=== PATIENT | female | born 1950 | race Native Hawaiian/Other Pacific Islander ===

== ENCOUNTER 2021-02-18 13:42 | Outpatient (CLI) | payer OTHER | END 2021-02-18 21:51 | disposition home or self-care (01) | LOC: MRI 13:42 | PROVIDERS: ATTEND Specialist | DX: R53.83 Other fatigue (principal); R20.2 Paresthesia of skin; R53.1 Weakness | CPT/HCPCS: 36415; 82085; 82565; 82607; 83519; 84520; 86255; 86256; A9576 ==

== ENCOUNTER 2021-02-21 12:39 | Outpatient (CLI) | payer OTHER | END 2021-02-21 20:17 | disposition home or self-care (01) | LOC: MRI 12:39 | PROVIDERS: ATTEND Specialist | DX: G37.9 Demyelinating disease of central nervous system, unspecified (principal) | CPT/HCPCS: A9576 ==

== ENCOUNTER 2021-02-22 12:01 | Outpatient (CLI) | payer OTHER | END 2021-02-22 22:02 | disposition home or self-care (01) | LOC: LAB 12:01 | PROVIDERS: ATTEND Specialist | DX: Z20.822 Contact with and (suspected) exposure to COVID-19 (principal) | CPT/HCPCS: 87635; U0003 ==

== ENCOUNTER 2021-02-25 08:13 | Outpatient (CLI) | payer OTHER | END 2021-02-25 19:20 | disposition home or self-care (01) | LOC: MRI 08:13 | PROVIDERS: ATTEND Specialist | DX: G37.8 Other specified demyelinating diseases of central nervous system (principal) | CPT/HCPCS: A9576 ==

== ENCOUNTER 2021-02-27 11:24 | Outpatient (CLI) | payer OTHER ==
[~2021-02-27] VITALS: Ht 154.9 cm; Wt 35.4 kg
== END 2021-02-27 23:00 | disposition home or self-care (01) ==
LOC: INF 11:24
PROVIDERS: ATTEND Internal Medicine Endocrinology, Diabetes & Metabolism
DX: G37.9 Demyelinating disease of central nervous system, unspecified (principal)
CPT/HCPCS: 96365; J2920

== ENCOUNTER 2021-02-28 09:11 | Outpatient (CLI) | payer OTHER ==
[~2021-02-28] VITALS: Ht 154.9 cm; Wt 35.4 kg
== END 2021-02-28 22:11 | disposition home or self-care (01) ==
LOC: INF 09:11
PROVIDERS: ATTEND Internal Medicine
DX: G37.9 Demyelinating disease of central nervous system, unspecified (principal)
CPT/HCPCS: 96365; J2920

== ENCOUNTER 2021-03-01 09:07 | Outpatient (CLI) | payer OTHER ==
[~2021-03-01] VITALS: Ht 154.9 cm; Wt 78.0 kg
== END 2021-03-01 19:29 | disposition home or self-care (01) ==
LOC: INF 09:07
PROVIDERS: ATTEND Internal Medicine
DX: G37.9 Demyelinating disease of central nervous system, unspecified (principal)
CPT/HCPCS: 96365; J2920

== ENCOUNTER 2021-03-02 08:58 | Outpatient (CLI) | payer OTHER ==
[~2021-03-02] VITALS: Ht 154.9 cm; Wt 77.6 kg
== END 2021-03-02 22:33 | disposition home or self-care (01) ==
LOC: INF 08:58 → EDSTATUS 09:00 → INF 09:00
PROVIDERS: ATTEND Internal Medicine
DX: G37.9 Demyelinating disease of central nervous system, unspecified (principal)
CPT/HCPCS: 96365; J2920

== ENCOUNTER 2021-03-06 07:49 | Outpatient (CLI) | payer OTHER ==
[~2021-03-06] VITALS: Ht 154.9 cm; Wt 78.0 kg
== END 2021-03-06 20:33 | disposition home or self-care (01) ==
LOC: RESP 07:49
PROVIDERS: ATTEND Specialist
DX: R26.89 Other abnormalities of gait and mobility (principal); R20.2 Paresthesia of skin; R29.898 Other symptoms and signs involving the musculoskeletal system

== ENCOUNTER 2021-03-06 13:28 | Outpatient (CLI) | payer OTHER ==
[~2021-03-06] VITALS: Ht 154.9 cm; Wt 78.0 kg
[2021-03-06 15:11] LABS: POTASSIUM 3.8 mmol/L (3.6-5.2)
== END 2021-03-06 20:38 | disposition home or self-care (01) ==
LOC: INF 13:28
PROVIDERS: ATTEND Internal Medicine
DX: G37.9 Demyelinating disease of central nervous system, unspecified (principal)
CPT/HCPCS: 80048; 96365; J2920

== ENCOUNTER 2021-03-07 08:36 | Outpatient (CLI) | payer OTHER ==
[~2021-03-07] VITALS: Ht 154.9 cm; Wt 78.0 kg
[2021-03-07 10:56] LABS: POTASSIUM 4.6 mmol/L (3.6-5.2)
== END 2021-03-07 19:08 | disposition home or self-care (01) ==
LOC: INF 08:36 → EDSTATUS 11:00 → INF 19:08
PROVIDERS: Specialist; ATTEND Internal Medicine
DX: G37.9 Demyelinating disease of central nervous system, unspecified (principal)
CPT/HCPCS: 80048; 96365; J2920

== ENCOUNTER 2021-03-11 13:42 | Outpatient (CLI) | payer OTHER | END 2021-03-11 22:25 | disposition home or self-care (01) | LOC: LAB 13:42 | PROVIDERS: ATTEND Internal Medicine | DX: R30.0 Dysuria (principal) | CPT/HCPCS: 81000 ==

== ENCOUNTER 2021-04-03 10:08 | Outpatient (CLI) | payer OTHER | END 2021-04-03 19:26 | disposition home or self-care (01) | LOC: MRI 10:08 | PROVIDERS: ATTEND Specialist | DX: G04.00 Acute disseminated encephalitis and encephalomyelitis, unspecified (principal) | CPT/HCPCS: 36415; 82565; 84520; A9576 ==

== ENCOUNTER 2021-04-10 14:30 | Inpatient (IN) | payer OTHER ==
[~2021-04-10] VITALS: Ht 154.9 cm; Wt 73.1 kg
[2021-04-10 16:39] VITALS: BP 153/57; TEMP 98.3; Ht 154.9 cm; Wt 73.1 kg
[2021-04-10 20:00] VITALS: BP 136/76; TEMP 97.9
[2021-04-11 08:00] VITALS: BP 138/78; TEMP 98
[2021-04-11 20:00] VITALS: BP 132/54; TEMP 98.1
[2021-04-12 08:00] VITALS: BP 119/65; TEMP 97.8
[2021-04-13 08:00] VITALS: BP 122/68; TEMP 97.7
[2021-04-13 20:00] VITALS: BP 132/53; TEMP 97.4
[2021-04-14 08:00] VITALS: BP 99/51; TEMP 98.4
[2021-04-14 20:00] VITALS: BP 102/63; TEMP 98.3
[2021-04-15 08:00] VITALS: BP 126/70; TEMP 98.4
[2021-04-15 19:45] VITALS: BP 115/54; TEMP 98.4
[2021-04-16 08:00] VITALS: BP 137/66; TEMP 98.6
== END 2021-04-16 14:23 | disposition home health service (06) | DRG 71 ==
LOC: MED/SURG 14:30
PROVIDERS: ADMIT Internal Medicine; ATTEND Internal Medicine
DX: G93.89 Other specified disorders of brain (principal); N39.0 Urinary tract infection, site not specified; B96.20 Unspecified Escherichia coli [E. coli] as the cause of diseases classified elsewhere
CPT/HCPCS: 81000; 87077; 87086; 87088; 87186; 87635; U0003

== ENCOUNTER 2021-04-25 13:45 | Observation (INO) | payer OTHER ==
[~2021-04-25] VITALS: Ht 154.9 cm; Wt 71.4 kg
[2021-04-25] VITALS (7 sets, daily range): BP systolic 84–165; BP diastolic 48–96; TEMP 97.8–101.4; Ht 154.9 cm; Wt 71.4 kg
[2021-04-25 14:31] LABS: PLATELET COUNT 312 K/uL (152-353); POTASSIUM 3.5 mmol/L (3.6-5.2)
[2021-04-25 14:51] LABS: PARTIAL THROMBOPLASTIN TIME 20.9 SECONDS (24.5-33.6)
[2021-04-26 00:36] VITALS: BP 134/51; TEMP 100
[2021-04-26 04:06] VITALS: BP 134/56; TEMP 98.6
[2021-04-26 08:00] VITALS: BP 167/60; TEMP 100.1
[2021-04-26 12:00] VITALS: BP 174/71; TEMP 100.7
[2021-04-26 16:00] VITALS: BP 141/62; TEMP 98.7
[2021-04-26 20:00] VITALS: BP 122/62; TEMP 98.9
[2021-04-27] VITALS: BP 149/56; TEMP 99.7
[2021-04-27 04:00] VITALS: BP 179/76; TEMP 100.5
[2021-04-27 08:00] VITALS: BP 168/65; TEMP 100.3
[2021-04-27 12:00] VITALS: BP 89/34; TEMP 100
== END 2021-04-27 18:00 | disposition expired ==
LOC: ED 13:45 → MED/SURG 19:20
PROVIDERS: Emergency Medicine; ADMIT Internal Medicine; ATTEND Internal Medicine
DX: C71.9 Malignant neoplasm of brain, unspecified (principal); I61.8 Other nontraumatic intracerebral hemorrhage; G93.5 Compression of brain; N39.0 Urinary tract infection, site not specified
CPT/HCPCS: 80053; 81000; 82550; 83880; 84484; 85027; 85610; 85730; 87088; 87635; 93005; 96365; 96375; 99220; 99284; G0378; J0696; J1100; J2270; J2930; U0003